=== PATIENT | male | born 1955 | race Caucasian/White ===

== ENCOUNTER 2019-03-14 11:00 | Day surgery (SDC) ==
--- NOTE | 2019-03-08 09:30 | EKG Report ---
Test Performed on : 03/08/2019 09:21:48 AM Test Reason : PAT Blood Pressure : / mmHG Vent. Rate : 082 BPM Atrial Rate : 082 BPM P-R Int : 166 ms QRS Dur : 084 ms QT Int : 360 ms P-R-T Axes : 048 065 062 degrees QTc Int : 420 ms Normal sinus rhythm. Normal ECG No previous ECGs available Confirmed by Micky ALLEN, Raghav ([id number]) on 03/08/2019 6:20:45 PM
[2019-03-08 09:45] LABS: HEMATOCRIT 35.2 % (42.0-52.0); HEMOGLOBIN 11.6 g/dL (14.0-18.0); MCH 26.5 PG (27-31); MCV 80.4 FL (81-99); MPV 10.3 FL (7.4-10.4); RBC 4.38 XMIL (4.7-6.1); RDW 14.5 % (11.5-14.5); WBC 7.95 X1000 (4.8-10.8)
[2019-03-08 10:27] LABS: CALCIUM 9.4 mg/dL (8.8-10.2); CREATININE 1.3 mg/dL (0.7-1.2); POTASSIUM 5.1 mmol/L (3.5-5.1)
[2019-03-14] MEDS ORDERED: KEFZOL 1 GM/D5W 1 GM/50 ML IVPB ONE (11:25)
[2019-03-14] MEDS ORDERED: LR 1,000 ML ONE (11:26)
[2019-03-14] MEDS ORDERED: SENSORCAINE-MPF 0.5%/EPI 1:200,000 ONE (12:14)
[2019-03-14] MEDS ORDERED: SUFENTA ONE (12:18)
[2019-03-14] MEDS ORDERED: FENTANYL ONE (13:13)
[2019-03-14] MEDS ORDERED: DIPRIVAN 1% ONE (13:40)
--- NOTE | 2019-03-14 14:56 | Diag Imaging Result Doc PS360 ---
EXAM: CHEST-2 VIEWS 03/14/2019 HISTORY: POST LUNG BIOPSY INS/EXP TECHNIQUE: Inspiratory expiratory PA upright chest COMMENT: There is a small right pneumothorax measuring 14 mm at the apex on the inspiration view. IMPRESSION: Pneumothorax complicating CT-guided biopsy. Electronically signed by Liam Muir 03/14/2019 2:54 PM
--- NOTE | 2019-03-14 15:06 | Diag Imaging Result Doc PS360 ---
EXAM: CT GUIDED BIOPSY LUNG 03/14/2019 HISTORY: R lung nodule TECHNIQUE: CT-guided biopsy of the right lower lobe COMMENT: The risks and benefits of the procedure including the possibility of bleeding, infection, reaction to lidocaine, and pneumothorax was discussed with the patient and he agreed to the procedure. Following sterile preparation the skin and administration 1% lidocaine to the skin and deeper soft tissues, a 20-gauge coaxial Temno core biopsy needle was employed to obtain four core specimens. There is some hemorrhage around the lesion at the termination of the procedure. There is a small pneumothorax. The patient tolerated the procedure well. IMPRESSION: Successful CT-guided biopsy complicated by pneumothorax. Electronically signed by Liam Muir 03/14/2019 3:03 PM
--- NOTE | 2019-03-14 16:46 | Diag Imaging Result Doc PS360 ---
EXAM: CHEST-2 VIEWS 03/14/2019 HISTORY: pneumo TECHNIQUE: Inspiratory expiratory chest, at 1633. COMMENT: There is a small apical pneumothorax on the right which was also present at 1448. This has not changed significantly in size now measuring 12 mm on the inspiratory view at the apex. IMPRESSION: Stable or slightly diminished right pneumothorax. Electronically signed by Liam Muir 03/14/2019 4:44 PM
[2019-03-14] MEDS ORDERED: TYLENOL PO PRN (17:21)
[2019-03-14] MEDS ORDERED: ZOFRAN IV PRN (17:21)
[2019-03-14] MEDS ORDERED: TORADOL IV PRN (17:21)
[2019-03-14] MEDS ORDERED: SALINE LOCK IV FLUID XX ONE (17:21)
[2019-03-15] MEDS: PRILOSEC PO SCH ×2 (05:56→06:01)
--- NOTE | 2019-03-15 08:08 | Diag Imaging Result Doc PS360 ---
CHEST-2 VIEWS - 03/15/2019 INDICATION: pneumothorax COMPARISON: 03/14/2019 FINDINGS: There has been decrease in the tiny right apical pneumothorax now measuring about 10 mm. Otherwise the lungs are clear and the heart size is normal. IMPRESSION: Decrease in the tiny right apical pneumothorax. Electronically signed by Oumar Otoole 03/15/2019 8:06 AM
[2019-03-15] MEDS ORDERED: NORVASC PO SCH (09:00)
[2019-03-15] MEDS ORDERED: GLUCOPHAGE PO SCH (09:00)
[2019-03-15] MEDS ORDERED: PRAVACHOL PO SCH (09:00)
[2019-03-15] MEDS ORDERED: PRINIVIL PO SCH (09:00)
[2019-03-15] MEDS ORDERED: JANUVIA PO SCH (09:00)
--- NOTE | 2019-03-15 09:38 | OPERATIVE NOTE ---
PROCEDURE DATE: 03/25/1019 PREOPERATIVE DIAGNOSIS: Left thyroid mass. POSTOPERATIVE DIAGNOSIS: Left thyroid mass. PROCEDURE: Ultrasound-guided core needle biopsy of left thyroid mass. CIGARETTE MAKER: randy Mena tech. SURGEON: Adal George MD. ESTIMATED BLOOD LOSS: Scant. COMPLICATIONS: None apparent. FINDINGS: Large heterogeneous mass of the left thyroid, roughly 10 cm in size or greater. TECHNIQUE: The left neck was prepped with Betadine and alcohol. A sterile drape was applied. 1% lidocaine was used to anesthetize the skin. A small stab incision was made with 11 under ultrasound guidance, a 16-gauge spring-loaded core biopsy needle was advanced into the thyroid mass and several core samples were taken. A Band-Aid was placed on the skin. He tolerated this well. There were no apparent complications. cc: Adal George MD
--- NOTE | 2019-03-15 09:41 | GENERAL SURGERY PROGRESS NOTE ---
DATE: 03/15/2019 SUBJECTIVE: The patient denies chest pain or shortness of breath. He is a little sore from the biopsy site, but otherwise is doing fine overnight. OBJECTIVE: Vital Signs: He is afebrile. Vital signs are stable. General: He is awake, alert, oriented x3. No acute distress. Respiratory: No work of breathing. IMAGING: His chest x-ray this morning shows a decrease in the small right apical pneumothorax. It is right around 1 cm in greatest dimension from the chest wall. ASSESSMENT AND PLAN: This is a 63-year-old male with left thyroid mass and suspicious pulmonary metastases, who was status post percutaneous lung biopsy yesterday with iatrogenic pneumothorax. This is improving. We will discharge him home today in addition, after a percutaneous core needle biopsy with ultrasound guidance of the thyroid mass. I discussed the risks and benefits of this biopsy with him, and he agrees to proceed. He will follow up with me in 1 week for discussion of pathology results and further recommendations. cc: Adal George MD
== END 2019-03-15 11:21 | disposition home or self-care (01) ==
LOC: OPS 11:00 → 4N 11:00 → PAT 11:00 → OPS 03-15 11:21
PROVIDERS: ATTEND Surgery
CPT/HCPCS: 32405; 60100; 71020; 71046; 76942; 77012; 80048; 82948; 85027; 88305; 88313; 93005; 93010; A9270; J0690; J3010; J7120; XXXXX

== ENCOUNTER 2019-03-27 05:08 | Day surgery (SDC) ==
[2019-03-27] MEDS ORDERED: LR 1,000 ML ONE (05:43)
[2019-03-27] MEDS ORDERED: REGLAN ONE (05:43)
[2019-03-27] MEDS ORDERED: PEPCID ONE (05:43)
[2019-03-27] MEDS ORDERED: KEFZOL 1 GM/D5W 1 GM/50 ML IVPB ONE (05:43)
[2019-03-27] MEDS ORDERED: DIPRIVAN 1% ONE (06:37)
[2019-03-27] MEDS ORDERED: SENSORCAINE-MPF 0.5%/EPI 1:200,000 ONE (06:38)
[2019-03-27] MEDS ORDERED: XYLOCAINE-MPF 2% ONE (06:39)
[2019-03-27] MEDS ORDERED: LABETALOL (DOSE) ONE (07:05)
[2019-03-27] MEDS ORDERED: DECADRON ONE ×2 (07:06→10:17)
[2019-03-27] MEDS ORDERED: ZOFRAN ONE (07:06)
[2019-03-27] MEDS ORDERED: OFIRMEV 1000 MG/ISOTONIC SOLN 1,000 MG/100 ML BOTTLE ONE (07:11)
[2019-03-27] MEDS ORDERED: NORCURON ONE (07:25)
[2019-03-27] MEDS ORDERED: EPHEDRINE ONE (07:44)
[2019-03-27] MEDS ORDERED: QUELICIN (DOSE) ONE (07:56)
[2019-03-27] MEDS ORDERED: ROBINUL ONE ×2 (07:57→10:33)
[2019-03-27] MEDS ORDERED: NEO-SYNEPHRINE ONE (09:37)
[2019-03-27] MEDS ORDERED: ZEMURON ONE (10:09)
[2019-03-27] MEDS ORDERED: DILAUDID ONE (10:19)
[2019-03-27] MEDS ORDERED: NEOSTIGMINE ONE (10:33)
[2019-03-27] MEDS ORDERED: NS 1,000 ML ONE (12:19)
[2019-03-27] MEDS ORDERED: DILAUDID IV PRN (12:42)
[2019-03-27] MEDS: NS 1,000 ML IV SCH (12:52)
[2019-03-27] MEDS ORDERED: BLISTEX MEDICATED BERRY LIP BALM TOP PRN (13:21)
[2019-03-27] MEDS: OFIRMEV 1000 MG/ISOTONIC SOLN 1,000 MG/100 ML BOTTLE IV SCH ×2 (17:41→20:56)
--- NOTE | 2019-03-27 18:03 | OPERATIVE NOTE ---
PROCEDURE DATE: 03/27/2019 PREOPERATIVE DIAGNOSIS: Papillary thyroid cancer with metastatic disease. POSTOPERATIVE DIAGNOSIS: Papillary thyroid cancer with metastatic disease. PROCEDURE PERFORMED: Near total thyroidectomy. SURGEON: Adal George MD CUPOLA TENDER: Mayito Kim MD SECOND CUPOLA TENDER: Allie Carranza MS4 ANESTHESIA: General. ESTIMATED BLOOD LOSS: 100 mL. COMPLICATIONS: None apparent. SPECIMENS: 1. Left thyroid lobe. 2. Right thyroid lobe and isthmus. FINDINGS: He had a large mass in the left thyroid lobe, which had a surrounding desmoplastic reaction with significant adhesions to the nearby structures in the neck. DRAINS: One number 7-ADITYA. TECHNIQUE: He was brought to the operating room and placed supine on the table. General anesthesia was induced. He was then placed in the beach chair position. His neck was prepped and draped in the usual sterile fashion. Marcaine 0.25% with epinephrine was used to anesthetize our incision. An incision was made along the skin creases in the neck 2 fingerbreadths above the sternal notch. This was done with a 15 blade. Cautery was used for hemostasis, and then used this to continue down, dissecting through the platysma. I then the strap muscles in the midline with cautery. Working on the left side first, I began to mobilize the strap muscles off of the left thyroid lobe, and it became evident quickly that I would need to divide the strap muscles for better exposure, so I did this with cautery. The mass was large and had significant adhesions with an inflammatory rind around it. I did use several [id number] 2-0 silk sutures to help retract the thyroid. I was able to push the strap muscles off the thyroid somewhat with a Kittner dissector, but this was difficult and it could not be completely mobilized in this fashion. I did use cautery and the LigaSure device to continue dividing the adhesions of the muscle from the thyroid lobe. Eventually, I was able to free up the inferior pole by taking the inferior pole vessels as they entered the gland. I did see the inferior parathyroid on the left, and I felt like I preserved it and teased it away from the thyroid gland with a Kittner dissector. Posteriorly, the gland was adherent to the jugular vein, and with a great deal of care and with tedious dissection, I was able to peel it off of the vein. There was one small area bleeding from what I think was a small branch that I oversewed with a [id number] 5-0 Prolene. The middle thyroid vein was encountered and divided with the ligature as it entered the gland. The superior pole was difficult to mobilize, but using the Kittner dissector and a right angle, I was able to identify the superior pole vessels as they entered the gland and divided them with the LigaSure device. There was some bleeding from the muscle and what I thought might be the nearby esophagus. We put Surgicel in this area and held pressure. I also used a nrqdhn-gw-wyzvi 3-0 silk for hemostasis on the muscle. I finally was able to mobilize the gland enough that I could roll it out medially, anteriorly and medially. The inferior thyroid artery and its branches were divided as they entered the gland with the LigaSure. I could not positively identify the left recurrent laryngeal nerve or the superior parathyroid. I divided the ligament of Enamorado with cautery and removed the left thyroid lobe from the remaining attachments to the trachea. It was passed off the field. The left side was packed with Ray-Haider gauze. I should point out that Dr. Kim had joined me midway through the dissection of the left thyroid lobe and was very helpful to help me finish mobilizing the lobe, identifying the vessels, and help me complete the excision of the right thyroid lobe. I then turned my attention to the right thyroid lobe. The strap muscles were more easily mobilized off of the lobe with blunt dissection. I encountered the middle thyroid vein and divided it with the LigaSure device. The inferior pole vessels were then divided in the same fashion as before, staying right against the gland. I felt like I saw the inferior parathyroid and preserved it. The superior pole vessels were then ligated in the same fashion as before but without the previously described desmoplastic inflammatory reaction around it. I then rolled the gland anteriorly and medially and divided the inferior thyroid artery branches as it entered the gland. Some small amounts of gland may have been left behind in order to protect the underlying recurrent laryngeal nerve, which I looked for, but could not see. I then divided the remaining attachments of the ligament of Enamorado and passed it off the field. There would appear to be some remaining thyroid gland isthmus on the midline of the trachea, and I divided it off the trachea with cautery. I then checked for hemostasis. There was no bleeding on the right side. The left side appeared to be dry. We washed out with saline. A 7-Olvin drain was brought in through a inferior stab wound with the knife. It was anchored to the skin with 3-0 silk. I placed the drain on either side of the trachea in the bed where the thyroid had laid. I repaired the strap muscles on the left with interrupted 3-0 Polysorb. I reapproximated the strap muscles in the midline with interrupted 3-0 Polysorb. The platysma was closed with a running 2-0 Polysorb. The skin was closed with a running 4-0 subcuticular Biosyn and Steri- Strips. There were no apparent complications. cc: Adal George MD
[2019-03-28] MEDS: OFIRMEV 1000 MG/ISOTONIC SOLN 1,000 MG/100 ML BOTTLE IV SCH ×2 (03:20→09:39)
[2019-03-28] MEDS ORDERED: HUMULIN R IV ONE (07:45)
[2019-03-28] MEDS: NS 1,000 ML IV SCH ×2 (08:03→15:25)
[2019-03-28] MEDS ORDERED: PERIDEX MT SCH (09:00)
--- NOTE | 2019-03-28 09:00 | GENERAL SURGERY PROGRESS NOTE ---
DATE: 03/28/2019 SUBJECTIVE: Overall he feels pretty good. Not much pain in his neck. He denies perioral or finger tip numbness or tingling. He does feel like he is having some contractions in his arm and hand on the right side, though. His blood sugars are up some overnight and this morning. OBJECTIVE: Vital Signs: He is afebrile. Vital signs are stable. Blood pressure 137-163 systolic, 60-100 diastolic. General: He is awake, alert, oriented x4. No acute distress. Neck: Mildly edematous. No significant hematoma. No drainage from the incision. The ADITYA drain has old blood in it and not much. Total recorded out is 85 mL overnight. He has no stridor. His voice is not particularly hoarse. LABORATORY: Calcium 8.3, glucose is recorded as 189 to 242 overnight. ASSESSMENT AND PLAN: A 63-year-old male postoperative day 1 near total thyroidectomy for papillary thyroid cancer. He also has metastases to the lungs. He is mildly hypocalcemic this morning. We are going to get a barium swallow study. If that is normal, we will allow him to start drinking liquids and taking TUMS. I will reassess him this afternoon; if he looks good, I will discharge him home. cc: Adal George MD
--- NOTE | 2019-03-28 09:23 | Diag Imaging Result Doc PS360 ---
EXAM: BA SWALLOW-ESOPHAGUS INDICATION: pod 1 thyroidectomy TECHNIQUE: Water-soluble iodinated contrast was administered orally and the bolus was followed under fluoroscopy. Spot images were obtained. COMPARISON: None. FINDINGS: There is no contrast extravasation to indicate an esophageal perforation. There is a small outpouching at the posterior aspect of lower hypopharyngeal region just superior to the cricopharyngeus muscle. This probably represents a tiny Zenker diverticulum. A small hiatal hernia is noted. There were a few tertiary contractions involving the distal esophagus with delayed passage of contrast into the stomach suggesting dysmotility. IMPRESSION: 1.No evidence of esophageal perforation. 2.Small outpouching at the posterior aspect of the lower hypopharyngeal region that probably represents a tiny Zenker diverticulum. 3.Small hiatal hernia and evidence of at least mild distal esophageal dysmotility. Electronically signed by Isac Sutton 03/28/2019 9:20 AM
[2019-03-28] MEDS ORDERED: TUMS EXTRA STRENGTH PO ONE (09:55)
[2019-03-28] MEDS ORDERED: TUMS EXTRA STRENGTH PO PRN (09:55)
[2019-03-28] MEDS: HUMULIN R SUBQ SCH ×2 (10:40→15:38)
[2019-03-28] MEDS ORDERED: HUMULIN R IV SCH (11:00)
[2019-03-28 15:21] VITALS: BP 169/84
[2019-03-29] MEDS ORDERED: PRILOSEC PO SCH (07:00)
[2019-03-29] MEDS ORDERED: PRAVACHOL PO SCH (09:00)
[2019-03-29] MEDS ORDERED: PRINIVIL PO SCH (09:00)
[2019-03-29] MEDS ORDERED: NORVASC PO SCH (09:00)
== END 2019-03-28 16:54 | disposition home or self-care (01) ==
LOC: OR 05:08 → 4N 05:08 → OR 03-28 16:54
PROVIDERS: ATTEND Surgery
PROC: GE.THYR (2019-03-27 06:53)
CPT/HCPCS: 74220; 82310; 82948; 88307; 94760; 94799; A9270; J0131; J0330; J0690; J1100; J1170; J2370; J2405; J7030; J7120; Q9966; Q9967; XXXXX